=== PATIENT | female | born 1970 ===

== ENCOUNTER 2017-04-22 20:58 | Emergency (ER) | payer SELFPAY ==
[2017-04-22 21:01] VITALS: BMI 33.3
[2017-04-22 21:05] VITALS: BP 139/80; PULSE 83; RESP 16; TEMP 98.4; O2SAT 97
--- NOTE | 2017-04-22 21:24 | ED PDOC ---
HPI: Dental Pain/Injury Time Seen by Provider: 04/22/17 21:06 Chief Complaint (Nursing): Dental Pain Chief Complaint (Provider): tooth ache History Per: Patient, Family (daughter at bedside is translatin in Georgian for patient, as per patient request) Onset/Duration Of Symptoms: Days (x5) Current Symptoms Are (Timing): Still Present Additional Complaint(s): Charlee Mcknight is a 46 year old female who presents to the emergency department for an evaluation of left facial swelling associated with dental pain status post completing root canal performed on 04/18/17. Patient is taking naprosyn for pain and this has not helped. She denies fever or chills. Patient is tolerating soft foods and liquids. She has follow up Monday with dentist but came this evening due to pain which she rates as 8/10. She last took naprosyn at 3:30 pm today and it did not provide her with any pain relief. PMD: Rashawn Marin MD Past Medical History Reviewed: Historical Data, Nursing Documentation, Vital Signs Vital Signs: Last Vital Signs Temp 98.4 F 04/22/17 21:01 Pulse 83 04/22/17 21:01 Resp 16 04/22/17 21:01 BP 139/80 04/22/17 21:01 Pulse Ox 97 04/22/17 21:01 - Medical History PMH: No Chronic Diseases - Surgical History Surgical History: Cholecystectomy, - Family History Family History: States: No Known Family Hx - Living Arrangements Living Arrangements: With Family - Social History Current smoker - smoking cessation education provided: No Alcohol: None Drugs: Denies - Home Medications Home Medications: Ambulatory Orders Medication Instructions Recorded Clindamycin [Cleocin] 150 mg PO TID #15 cap 08/25/16 traMADol [Ultram] 50 mg PO TID PRN #12 tab 08/25/16 Acetaminophen [Tylenol 325mg tab] 650 mg PO Q4 PRN #1 bottle 04/22/17 Ibuprofen [Motrin Tab] 800 mg PO Q8 PRN #20 tab 04/22/17 - Allergies Allergies/Adverse Reactions: Allergies Allergy/AdvReac Type Severity Reaction Status Date / Time No Known Allergies Allergy Verified 04/22/17 21:01 Review of Systems ROS Statement: Except As Marked, All Systems Reviewed And Found Negative Constitutional: Negative for: Fever, Chills ENT: Positive for: Other (dental pain, facial swelling) Respiratory: Negative for: Cough Gastrointestinal: Negative for: Nausea, Vomiting Neurological: Negative for: Dizziness Physical Exam - Reviewed Nursing Documentation Reviewed: Yes Vital Signs Reviewed: Yes - Physical Exam Appears: Positive for: Well, Non-toxic, Uncomfortable Head Exam: Positive for: ATRAUMATIC, NORMAL INSPECTION, NORMOCEPHALIC Skin: Positive for: Normal Color. Negative for: Rash Eye Exam: Positive for: Normal appearance, EOMI, PERRL ENT: Positive for: Other (Post surgical changes to left upper molar tooth #14 with no abscess or gingival swelling, slight left swelling to left mandibular region, airway patent, uvula midline) Neck: Positive for: Painless ROM Cardiovascular/Chest: Positive for: Regular Rate, Rhythm Respiratory: Positive for: CNT, Normal Breath Sounds Extremity: Positive for: Normal ROM Neurologic/Psych: Positive for: Alert, Oriented Comments: Dental Exam: --Slight swelling of left side of face; post operative --post surgical changes to tooth 14th --No dental abscess --No facial cellulites - ECG O2 Sat by Pulse Oximetry: 97 (RA) Pulse Ox Interpretation: Normal Medical Decision Making Medical Decision Making: Initial Impression: Dental pain, facial swelling Initial Plan: * Tylenol 975mg PO * Motrin 600mg PO Patient states meds given in ED helped with the pain. She was instructed to continue with clindamycin and was given rx motrin and tylenol. She was advised to stop taking the naprosyn and was also instructed to take tylenol along with the motrin. Advised follow up as scheduled Monday with dentist. Scribe Attestation: Documented by Shey Rendon, acting as a scribe for Mariel Renee PA-C. Provider Scribe Attestation: All medical record entries made by the Scribe were at my direction and personally dictated by me. I have reviewed the chart and agree that the record accurately reflects my personal performance of the history, physical exam, medical decision making, and the department course for this patient. I have also personally directed, reviewed, and agree with the discharge instructions and disposition. Disposition - Clinical Impression Clinical Impression: Pain, dental - Patient ED Disposition Is Patient to be Admitted: No Counseled Patient/Family Regarding: Diagnosis, Need For Followup, Rx Given - Disposition Referrals: [facility] [Outside] Disposition: Routine/Home Disposition Time: 21:40 Condition: STABLE Additional Instructions: Stop taking naprosyn and continue with motrin every 6 hrs and tylenol every 4 hr for pain control. Continue with antibiotics. Follow up Monday with dentist. Prescriptions: Acetaminophen [Tylenol 325mg tab] 650 mg PO Q4 PRN #1 bottle PRN Reason: Pain, Moderate (4-7) Ibuprofen [Motrin Tab] 800 mg PO Q8 PRN #20 tab PRN Reason: Pain, Moderate (4-7) Instructions: Toothache (ED) Forms: [employer] (Georgian) Print Language: SOMALI
== END 2017-04-22 22:07 | disposition home or self-care (01) ==
LOC: H.ER 20:58
DX: K08.89 Other specified disorders of teeth and supporting structures (principal)